=== PATIENT | male | born 1995 | race Two or more races ===

== ENCOUNTER 2018-11-02 05:49 | Emergency (ER) | payer SELFPAY ==
[~2018-11-02] VITALS: Ht 170.2 cm; Wt 80.8 kg
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
[2018-11-02] MEDS ORDERED: HYDROcodone/APAP 5/325 TABLET ONE (06:27)
[2018-11-02] MEDS ORDERED: DIPH,PERTUSS(ACELL),TET VAC/PF 0.5 ML IM-VACC ONE ×2 (06:28→06:30)
[2018-11-02] MEDS ORDERED: LIDOCAINE 2%, 20ML SQ ONE (06:30)
[2018-11-02] MEDS ORDERED: HYDROcodone/APAP 5/325 TABLET PO ONE (06:30)
--- NOTE | 2018-11-02 06:33 | NUR ---
[facility] AT BEDSIDE
[2018-11-02] MEDS ORDERED: LIDOCAINE-MPF 1%, 5ML ONE ×2 (06:48)
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
[2018-11-02 08:54] VITALS: BP 136/88
--- NOTE | 2018-11-02 09:02 | NUR ---
Patient/Caregiver given discharge instructions and they have confirmed that they understand the instructions. Patient ambulatory with steady gait. Pt left with all personal belongings.
== END 2018-11-02 09:04 | disposition home or self-care (01) ==
LOC: ED 08:45
DX: S01.511A Laceration without foreign body of lip, initial encounter (principal); Z87.891 Personal history of nicotine dependence; Y04.0XXA Assault by unarmed brawl or fight, initial encounter; Y93.89 Activity, other specified; Y92.89 Other specified places as the place of occurrence of the external cause; Y99.8 Other external cause status
CPT/HCPCS: 40650; 90471; 90715

== ENCOUNTER 2018-11-13 21:50 | Emergency (ER) | payer OTHER ==
[~2018-11-13] VITALS: Ht 170.2 cm; Wt 79.1 kg
[2018-11-13 21:56] VITALS: BP 128/74
--- NOTE | 2018-11-13 22:06 | NUR ---
pt to room from lobby
== END 2018-11-13 22:52 | disposition home or self-care (01) ==
LOC: ED 22:33
DX: S01.511D Laceration without foreign body of lip, subsequent encounter (principal); X58.XXXD Exposure to other specified factors, subsequent encounter
CPT/HCPCS: 99281

== ENCOUNTER 2019-09-19 20:44 | Emergency (ER) | payer OTHER ==
[~2019-09-19] VITALS: Ht 170.2 cm; Wt 85.5 kg
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
[2019-09-19 21:17] VITALS: BP 138/69
== END 2019-09-19 21:52 | disposition home or self-care (01) ==
LOC: ED 21:20
DX: S39.011A Strain of muscle, fascia and tendon of abdomen, initial encounter (principal); X58.XXXA Exposure to other specified factors, initial encounter; Y93.89 Activity, other specified; Y92.89 Other specified places as the place of occurrence of the external cause; Y99.8 Other external cause status
CPT/HCPCS: 99283

== ENCOUNTER 2020-06-10 16:01 | Emergency (ER) | payer OTHER ==
[~2020-06-10] VITALS: Ht 170.2 cm; Wt 81.0 kg
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
--- NOTE | 2020-06-10 16:41 | NUR ---
ERMD AT BEDSIDE FOR EVALUATION.
[2020-06-10] MEDS ORDERED: KETOROLAC 30 MG/1 ML ONE (16:50)
[2020-06-10] MEDS ORDERED: ONDANSETRON 2MG/ML, 2ML ONE (16:51)
[2020-06-10] MEDS ORDERED: HYDROmorphone 2 MG/ML, 1ML ONE (16:51)
[2020-06-10] MEDS ORDERED: SODIUM CHLORIDE FLUSH 10ML SYR IVF ONE (17:00)
[2020-06-10] MEDS ORDERED: KETOROLAC 30 MG/1 ML IVPush ONE (17:00)
[2020-06-10] MEDS ORDERED: HYDROmorphone 2 MG/ML, 1ML IVPush PRN ×2 (17:00→20:00)
[2020-06-10] MEDS ORDERED: ONDANSETRON 2MG/ML, 2ML IVPush ONE (17:00)
--- NOTE | 2020-06-10 17:10 | NUR ---
18 GAUGE IV STARTED R-AC, PATIENT MEDICATED PER eMAR, CONNECTED TO REGISTERED DIETETIC TECHNICIAN, SIDE RAILS UP X2, FAMILY AT BEDSIDE, CALL LIGHT WITHIN REACH.
--- NOTE | 2020-06-10 17:49 | NUR ---
PATIENT TO MRI.
[2020-06-10 19:42] VITALS: BP 100/40
--- NOTE | 2020-06-10 19:43 | NUR ---
PATIENT RESTING IN GURNEY ON PHONE, FAMILY AT BEDSIDE. NO SIGNS OF ACUTE DISTRESS, CONNECTED TO VITALS MACHINE, CALL LIGHT WITHIN REACH.
[2020-06-10] MEDS ORDERED: METHOCARBAMOL 750 MG TABLET PO ONE (20:00)
[2020-06-10] MEDS ORDERED: HYDROmorphone 1 MG/ML, 1ML INJ ONE (20:01)
[2020-06-10] MEDS ORDERED: METHOCARBAMOL 750 MG TABLET ONE (20:01)
--- NOTE | 2020-06-10 20:12 | NUR ---
TASK RN, ASSISTING PRIMARY WITH DISCHARGE. DC INSTRUCTS PROVIDED TO PT AND FAMILY. WHILE ASSISTING PT IN SITTING UP ON GURNEY, PT UNABLE TO RAISE TO 30 DEGREES BEFORE PAIN ESCALATED FROM 3/10 TO 6/10. PT LOWERED TO FLAT POSITION FOR MORE COMFORT. ERP NOTIFIED, ADDITIONAL MEDS ORDERED AND GIVEN. THIS REPORTED TO PRIMARY RN. PT PLACED BACK ON PULSE OX AND BP CUFF. FAMILY AT BS, CALL LIGHT WITHIN REACH.
--- NOTE | 2020-06-10 21:25 | NUR ---
Patient given discharge instructions and prescriptions they have confirmed that they understand the instructions. Patient wheeled out of ED in stable condition to private vehicle, mom is driving.
== END 2020-06-10 21:26 | disposition home or self-care (01) ==
LOC: ED 16:28
DX: G89.11 Acute pain due to trauma (principal); M54.5 Low back pain
CPT/HCPCS: 72148; 96374; 96375; 96376; 99284; J1170; J1885; J2405